=== PATIENT | male | born 1990 | race Caucasian/White ===

== ENCOUNTER 2022-05-06 08:03 | Emergency (ER) | payer OTHER, SELFPAY ==
--- NOTE | 2022-05-06 08:05 | ED.GENADULT ---
HPI - General Adult General Stated complaint: Work Note Time Seen by Provider: 05/06/22 08:04 Source: patient Mode of arrival: ambulatory Limitations: no limitations History of Present Illness HPI narrative: Mr. May is a 31-year-old male patient presenting to the clinic today with request for a work note. He reports Related Data Home Medications Medication Instructions Recorded Confirmed No Home Medications 05/06/22 05/06/22 Allergies Allergy/AdvReac Type Severity Reaction Status Date / Time No Known Allergies Allergy Unverified 05/06/22 08:14 Review of Systems Review of Systems: Pertinent positives per HPI. Patient denies any fever, chills, rash, headache, visual changes, dizziness, cough, runny nose, sore throat, shortness of breath, chest pain, palpitations, nausea, vomiting, diarrhea, constipation, abdominal pain, or any urinary issues. PMFSH Comments At the time of my signature, I reviewed and agree with the nursing past medical, surgical, social, and family history. There is no relevant family history pertinent to the patient complaint. Exam Narrative: General: Well-developed, well nourished, in no apparent distress Head: Normocephalic, atraumatic Eyes: Pupils equally round and reactive to light bilaterally, EOM intact, sclera and conjunctive clear, no discharge, lids normal Ears: TMs intact and clear, ear canals clear, no drainage, grossly hearing normal. Nose: Nares patent, no discharge, no inflammation, no sinus tenderness. Mouth: Oropharynx without lesions or masses, good dentition, MMM. Neck: Supple, trachea midline, no enlargement of anterior or posterior cervical nodes, no thyroid masses or goiter palpable. Cardio: Regular rate and rhythm, s1 and s2 normal, no murmur appreciated. Resp: Clear to auscultation bilaterally anteriorly and posteriorly, no rhonchi, rales, wheezing or rubs Course Course Emergency Course: Portions of this record may have been created with voice recognition software. Level of Care: Express Care Visit Vital Signs Vital signs: Vital signs reviewed Medical Decision Making [facility] Narrative Medical decision making narrative: At the time of visit patient is resting comfortably on the exam table. Patient reports that his headache has resolved. He called off on Tuesday and is needing a work note to return. He denies any concerns currently Differential Diagnosis Differential Diagnosis: acute headache, migraine Discharge Plan Discharge Clinical Impression: Headache Qualifiers: Headache type: unspecified Headache chronicity pattern: acute headache Intractability: not intractable Qualified Code(s): R51.9 - Headache, unspecified Patient Disposition: Home, Self-Care Condition: Stable Instructions: Antibiotic Form, Acute Headache (ED) Additional Instructions: Increase fluids and stay well-hydrated Take Tylenol/Motrin as needed for pain May return to work Follow-up with your PCP as needed Follow-up/Referrals: PHYSICIAN,CREDIT ADJUSTER [Primary Care Provider] - Stand Alone Forms: Work/School Release IP Quality NIHSS Nursing Documentation ED NIHSS nursing documentation: reviewed/agree
[2022-05-06 08:14] VITALS: BP 126/68; PULSE 91; RESP 16; TEMP 36.3; O2SAT 100
[2022-05-06 08:16] VITALS: BP 126/68; PULSE 91; RESP 16; TEMP 36.3; O2SAT 100
== END 2022-05-06 08:19 | disposition home or self-care (01) ==
PROVIDERS: Emergency Provider Nurse Practitioner Family
DX: R51.9 Headache, unspecified (principal)
CPT/HCPCS: 99211; G0463